=== PATIENT | female | born 1995 | race Caucasian/White ===

== ENCOUNTER 2022-10-17 16:15 | Outpatient (CLI) | payer BC, MEDICAID ==
[2022-10-17 17:53] LABS: BASOPHILS % (AUTO) 0.5 % (0-1); EOSINOPHILS # (AUTO) 0.1 X10'3 (0-0.9); EOSINOPHILS % (AUTO) 1.1 % (0-6); HEMOGLOBIN 13.1 g/dl (12.0-16.0); LYMPHOCYTES # (AUTO) 1.8 X10'3 (1.1-4.8); LYMPHOCYTES % (AUTO) 28.7 % (21-51); MEAN CORPUSCULAR HEMOGLOBIN 29.7 PG (27.0-31.0); MEAN CORPUSCULAR HGB CONC 33.7 g/dL (33.0-36.5); MEAN CORPUSCULAR VOLUME 88.1 FL (78-98); MEAN PLATELET VOLUME 8.2 FL (7.4-10.4); MONOCYTES # (AUTO) 0.4 X10'3 (0-0.9); MONOCYTES % (AUTO) 5.6 % (2-12); NEUTROPHILS # (AUTO) 4.1 X10'3 (1.8-7.7); NEUTROPHILS % (AUTO) 64.1 % (42-75); PLATELET COUNT 249 X10'3 (140-440); RED BLOOD COUNT 4.42 X10'6 (4.20-5.60); RED CELL DISTRIBUTION WIDTH 13.7 % (11.5-14.5); WHITE BLOOD COUNT 6.4 X10'3 (4.5-11.0)
[2022-10-17 18:25] LABS: CHOL/HDL RATIO 2.1 (0.00-4.99); CHOLESTEROL 145 MG/DL (0-200); FERRITIN 15 NG/ML (8-252); HDL CHOLESTEROL 69 MG/DL (35-60); LDL CHOLESTEROL 71 MG/DL (50-100); TRIGLYCERIDES 59 MG/DL (20-135)
== END 2022-10-17 23:59 | disposition home or self-care (01) ==
LOC: LAB 16:15
PROVIDERS: ATTEND Physician Assistant
DX: R53.82 Chronic fatigue, unspecified (principal)
CPT/HCPCS: 36415; 80061; 82306; 82607; 82728; 82746; 84153; 84443; 85025; 86900; 86901; 87088

== ENCOUNTER 2022-10-17 16:21 | Outpatient (CLI) | payer BC, MEDICAID | END 2022-10-17 23:59 | disposition home or self-care (01) | LOC: LAB 16:21 | PROVIDERS: ATTEND Internal Medicine Endocrinology, Diabetes & Metabolism | DX: E03.9 Hypothyroidism, unspecified (principal) | CPT/HCPCS: 36415; 84439; 84443; 84481; 84482 ==

== ENCOUNTER 2022-12-28 11:33 | Outpatient (CLI) | payer BC, MEDICAID | END 2022-12-28 23:59 | disposition home or self-care (01) | LOC: LAB 11:33 | PROVIDERS: ATTEND Physician Assistant | DX: R53.82 Chronic fatigue, unspecified (principal) | CPT/HCPCS: 36415; 83735; 84255 ==

== ENCOUNTER 2024-09-30 08:18 | Emergency (ER) | payer BC, MEDICAID ==
[~2024-09-30] VITALS: Ht 160 cm; Wt 62.7 kg
[~2024-09-30 08:18] MED LIST: LEVO100T78 PO; LEVO50TA66 PO; PRE PO; PROBIOTICS PO
[2024-09-30 08:32] VITALS: BP 124/82; PULSE 106; RESP 16; O2SAT 97
[2024-09-30] MEDS ORDERED: LORA-269 PO (10:29)
[2024-09-30 11:07] VITALS: TEMP 97.9
== END 2024-09-30 11:07 | disposition home or self-care (01) ==
LOC: ER 08:18
DX: G47.00 Insomnia, unspecified (principal); F41.9 Anxiety disorder, unspecified; Z79.899 Other long term (current) drug therapy
CPT/HCPCS: 99283

== ENCOUNTER 2024-10-12 06:01 | Emergency (ER) | payer MEDICAID ==
[~2024-10-12] VITALS: Ht 160 cm; Wt 61.4 kg
[~2024-10-12 06:01] MED LIST changes: +LORA-269 PO
[2024-10-12 07:46] VITALS: BP 132/79; PULSE 101; RESP 16; TEMP 98.1; O2SAT 98
== END 2024-10-12 08:33 | disposition home or self-care (01) ==
LOC: ER 06:02
DX: G47.00 Insomnia, unspecified (principal); G47.30 Sleep apnea, unspecified; Z88.8 Allergy status to other drugs, medicaments and biological substances; Z79.899 Other long term (current) drug therapy; Z79.890 Hormone replacement therapy
CPT/HCPCS: 99281